=== PATIENT | male | born 1970 | race Caucasian/White ===

== ENCOUNTER 2018-10-15 13:50 | Outpatient (CLI) | payer OTHER | END 2018-10-15 14:05 | disposition home or self-care (01) | LOC: SONOGRAMA 13:50 | DX: R22.31 Localized swelling, mass and lump, right upper limb (principal); R59.0 Localized enlarged lymph nodes; M25.511 Pain in right shoulder; S46.001A Unspecified injury of muscle(s) and tendon(s) of the rotator cuff of right shoulder, initial encounter ==